=== PATIENT | male | born 1935 | race Caucasian/White ===

== ENCOUNTER 2016-05-19 18:45 | Inpatient (IN) ==
[2016-05-19] MEDS ORDERED: SODIUM CHLORIDE 1,000 ML IV STA (18:56)
[2016-05-19 19:34] LABS: BASOPHILS # (AUTO) 0.1 K/uL (0-0.2); BASOPHILS % (AUTO) 1.2 % (0.0-3.0); EOSINOPHILS # (AUTO) 0.6 K/ul (0.0-0.7); EOSINOPHILS % (AUTO) 6.1 % (0.0-7.0); HEMATOCRIT 35.3 % (42.0-52.0); HEMOGLOBIN 10.8 g/dl (14.0-18.0); IMMATURE GRANULOCYTE % (AUTO) 0.4 % (0.0-5.0); LYMPHOCYTES # (AUTO) 2.1 K/uL (0.60-3.4); LYMPHOCYTES % (AUTO) 20.8 (10.0-50.0); MEAN CORPUSCULAR HGB CONC 30.6 (31.8-35.4); MEAN CORPUSCULAR VOLUME 85.1 fl (80.0-94.0); MONOCYTES % (AUTO) 9.3 (0-10); NEUTROPHILS # (AUTO) 6.4 K/ul (2.0-6.9); NEUTROPHILS % (AUTO) 62.2; PLATELET COUNT 238 10^3/uL (140-440); RED BLOOD COUNT 4.15 10^6/ul (4.70-6.10)
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
[2016-05-19 19:49] LABS: ABG BASE EXCESS 5 (-2.0-2.0); ABG HCO3 28.3 (22.0-26.0); ABG PCO2 36.9 mmHg (35-45); ABG PH 7.493 (7.35-7.45); ABG TCO2 29 (22.0-28.0)
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
[2016-05-19 20:10] LABS: ALBUMIN 3.5 g/dL (3.4-5.0); ALBUMIN/GLOBULIN RATIO 1.06; ANION GAP 11.4; BILIRUBIN,TOTAL 0.52 mg/dL (0.00-1.20); BUN/CREATININE RATIO 14.4; CALCIUM 9.4 mg/dL (8.2-10.2); CREATININE 1.25 mg/dL (0.60-1.10); POTASSIUM 4.4 mmol/L (3.5-5.1); TOTAL PROTEIN 6.8 g/dL (5.8-8.1)
[2016-05-19 20:11] LABS: CREATINE KINASE MB 3.6 ng/ml (0.0-3.6)
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
[2016-05-19] MEDS ORDERED: SODIUM CHLORIDE 1,000 ML IV SCH (20:30)
[2016-05-19 20:40] LABS: BILIRUBIN,URINE Negative (NEGATIVE); KETONES,URINE Negative (NEGATIVE); LEUKOCYTE ESTERASE ,URINE 2+ (NEGATIVE); NITRITE,URINE Negative (NEGATIVE); PROTEIN,URINE Negative (NEGATIVE); URINE, BLOOD 1+ (NEGATIVE)
[2016-05-19 20:42] LABS: ADD URINE MICROSCOPIC YES; BACTERIA,URINE 1+ (NOT PRESENT)
[2016-05-19] MEDS: PERCOCET 5-325 PO PRN (21:23)
[2016-05-19 21:59] VITALS: BMI 24.8
[2016-05-19] MEDS ORDERED: DESYREL PO PRN (22:31)
[2016-05-19] MEDS ORDERED: NON-FORMULARY MEDICATION (Simvastatin [Zocor] 20 MG) PO SCH ×22 (22:45)
[2016-05-19] MEDS ORDERED: ZOCOR ONE (22:49)
[2016-05-19] MEDS: NEURONTIN PO SCH (22:50)
[2016-05-19] MEDS: XOPENEX 0.63 MG NEB SCH (23:45)
[2016-05-20] MEDS: XOPENEX 0.63 MG NEB SCH ×2 (05:10→14:34)
[2016-05-20 05:28] LABS: BASOPHILS # (AUTO) 0.1 K/uL (0-0.2); BASOPHILS % (AUTO) 1.1 % (0.0-3.0); EOSINOPHILS # (AUTO) 0.6 K/ul (0.0-0.7); EOSINOPHILS % (AUTO) 7.1 % (0.0-7.0); HEMATOCRIT 31.4 % (42.0-52.0); HEMOGLOBIN 9.8 g/dl (14.0-18.0); IMMATURE GRANULOCYTE % (AUTO) 0.4 % (0.0-5.0); LYMPHOCYTES # (AUTO) 2.1 K/uL (0.60-3.4); LYMPHOCYTES % (AUTO) 26.1 (10.0-50.0); MEAN CORPUSCULAR HEMOGLOBIN 26.4 pg (27.0-31.0); MEAN CORPUSCULAR HGB CONC 31.2 (31.8-35.4); MEAN CORPUSCULAR VOLUME 84.6 fl (80.0-94.0); MONOCYTES # (AUTO) 0.7 K/uL (0.4-2.0); MONOCYTES % (AUTO) 8.9 (0-10); NEUTROPHILS # (AUTO) 4.5 K/ul (2.0-6.9); NEUTROPHILS % (AUTO) 56.4; PLATELET COUNT 219 10^3/uL (140-440); RED BLOOD COUNT 3.71 10^6/ul (4.70-6.10); WHITE BLOOD COUNT 7.98 K/ul (4.2-10.2)
[2016-05-20 05:47] LABS: ALBUMIN 3.1 g/dL (3.4-5.0); ALBUMIN/GLOBULIN RATIO 1.07; ANION GAP 11.2; BILIRUBIN,TOTAL 0.54 mg/dL (0.00-1.20); BUN/CREATININE RATIO 15.95; CALCIUM 9.2 mg/dL (8.2-10.2); CREATININE 0.94 mg/dL (0.60-1.10); POTASSIUM 4.2 mmol/L (3.5-5.1)
[2016-05-20] MEDS: MUCINEX PO SCH ×2 (08:39→16:29)
[2016-05-20] MEDS: NEURONTIN PO SCH ×2 (08:40→16:30)
[2016-05-20] MEDS: PERCOCET 5-325 PO PRN (08:41)
[2016-05-20] MEDS ORDERED: FOLIC ACID SUBCUT SCH (09:00)
[2016-05-20] MEDS ORDERED: NON-FORMULARY MEDICATION (Omega-3 Fatty Acids/Fish Oil [Fish Oil 1,000 Mg Softgel] 1,000 M PO SCH ×22 (09:00)
[2016-05-20] MEDS ORDERED: OMEGA-3 FISH OIL PO SCH (09:00)
[2016-05-20] MEDS ORDERED: NON-FORMULARY MEDICATION (Hydroxychloroquine Sulfate 200 MG) PO SCH (09:00)
[2016-05-20] MEDS ORDERED: MULTIVITAMIN PO SCH (09:00)
[2016-05-20] MEDS ORDERED: LOVENOX SUBCUT SCH (09:00)
[2016-05-20] MEDS ORDERED: FLOMAX PO SCH (09:00)
[2016-05-20] MEDS ORDERED: SPIRIVA IH SCH (09:00)
[2016-05-20] MEDS ORDERED: PREDNISONE PO SCH (09:00)
[2016-05-20] MEDS ORDERED: PLAQUENIL PO SCH (09:00)
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
[2016-05-20] MEDS: NORCO 10-325 PO SCH ×3 (12:00→16:31)
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
[2016-05-20 15:01] VITALS: BP 106/60; TEMP 97
[2016-05-20] MEDS ORDERED: ZOCOR PO SCH (21:00)
--- NOTE | 2016-05-24 08:39 | PN ---
DATE OF SERVICE: 05/19/16 SUBJECTIVE: The patient was brought by the family to the emergency room as patient was recently at the [facility] after the fall and had a rib fracture. He went home but was not going fine, still weak and tired complaining about the chest pain and pain when he breathes so the family was worried and brought the patient to the emergency room for the evaluation. He was seen by Dr. Collazo. CT chest again showed the fractured ribs. He was given some IV fluids in the emergency room; mildly anemic 10.8, glucose [address] chest found rib fracture on the right first rib and displaced fractured left lateral second rib at that time the patient was admitted to the hospital for the pain medication and for IV fluids management. REVIEW OF SYSTEMS: CONSTITUTIONAL: No fever, no chills. HEENT: Normal. ENDOCRINE: No weight gain, no weight loss. CVS: No angina symptoms. No CHF symptoms. No palpitations. No atypical chest pain for CAD. No shortness of breath. No PND, no orthopnea. RESPIRATORY: No cough, no hemoptysis. GI: No nausea, no vomiting. No abdominal pain. : No hematuria. No polyuria. MUSCULOSKELETAL:. No joint swelling. PSYCHIATRIC: Not anxious. No depression. No suicidal thoughts. No homicidal thoughts. SKIN: Intact. No rash. PHYSICAL EXAMINATION: V/S: Blood pressure 165/68, respiratory rate 29, heart rate 102, temperature 97.3 and saturation was 98% in the emergency room. GENERAL: Mildly distress elderly gentleman. HEENT: Normocephalic, atraumatic. Ears, eyes, nose and throat normal. Mucosa dry. Pallor positive. No icterus. NECK: Supple. No JVD, no carotid bruit. No lymphadenopathy. LUNGS:Decreased and Basilar crackles.. No rales or rhonchi. HEART: S1, S2 normal. No S3. No murmur, gallop or regurgitation. ABDOMEN: Soft, nontender. Bowel sounds active. No rigidity. No rebound or guarding. No CVA tenderness. EXTREMITIES: No clubbing, cyanosis or pedal edema. MUSCULOSKELETAL: No joint swelling. NEUROLOGIC: Awake, alert, oriented times three. No focal deficit. LYMPHATIC: No lymph nodes palpable. SKIN: Intact. ASSESSMENT: 1. Right first rib and left second rib fracture 2. Status post fall with concussion to the head 3. History of peptic ulcer disease 4. Anemia 5. Sleep apnea 6. COPD 7. Osteoarthritis 8. Rheumatoid arthritis 9. Prostate Cancer 10.Anxiety PLAN: 1. Admit patient inpatient 2. Pain medications 3. IV fluids 4. Daily I& O's 5. Hydrocodone 6. Lovenox for the DVT prophylaxis Will follow the patient in daily rounds. TIME SPENT: More than 30 minutes MTDD
--- NOTE | 2016-05-24 09:44 | SSS ---
DATE OF SERVICE: 05/20/16 REASON FOR ADMISSION/HISTORY OF PRESENT ILLNESS: The patient was brought by the family to the emergency room as patient was recently at the [facility] after the fall and had a rib fracture. He went home but was not going fine, still weak and tired complaining about the chest pain and pain when he breathes so the family was worried and brought the patient to the emergency room for the evaluation. He was seen by Dr. Collazo. CT chest again showed the fractured ribs. He was given some IV fluids in the emergency room; mildly anemic 10.8, glucose [address] chest found rib fracture on the right first rib and displaced fractured left lateral second rib at that time the patient was admitted to the hospital for the pain medication and for IV fluids management. REVIEW OF SYSTEMS: CONSTITUTIONAL: No night sweats. No fatigue, malaise, lethargy. No fever or chills. HEENT: Eyes: No visual changes. No eye pain. No eye discharge. ENT: No runny nose. No epistaxis. No sinus pain. No sore throat. No odynophagia. No ear pain. No congestion. RESPIRATORY: No cough, no congestion. No hemoptysis. CARDIOVASCULAR: No angina symptoms. No CHF symptoms. No atypical chest pain for CAD. No palpitations. No shortness of breath. GASTROINTESTINAL: No abdominal pain. No nausea or vomiting. No diarrhea or constipation. No hematemesis. No hematochezia. GENITOURINARY: No urgency. No frequency. No dysuria. No hematuria. No obstructive symptoms. No discharge. No pain. No significant abnormal bleeding. MUSCULOSKELETAL: No musculoskeletal pain. No joint swelling. NEUROLOGICAL: Awake, alert, oriented to time, place and person. No headache. No neck pain. No syncope. No seizures. No dizziness. PSYCHIATRIC: Not anxious. No depression. No suicidal thoughts. No homicidal thoughts. SKIN: No rash. No lesions. No wounds. ENDOCRINE: No unexplained weight loss. No weight gain. HEMATOLOGIC/LYMPHATIC: No anemia. No purpura. No petechiae. No prolonged or excessive bleeding. No palpable lymph nodes. PAST MEDICAL HISTORY: Dyslipidemia Hypertension Osteoporosis Chronic kidney disease Rheumatoid arthritis BHP Anemia PAST SURGICAL HISTORY: COPD Sleep apnea on CPAP Orthopedic surgery Joints straightened- toes pins in place PERSONAL/FAMILY HISTORY/SOCIAL HISTORY: The patient does not smoke or drink. and lives with the . Family history is significant for the prostate cancer. PHYSICAL EXAMINATION: VITAL SIGNS: Temperature 97, pulse 81, blood pressure 16/60, respiratory rate 20 and pulse ox 99% HEENT: Head normocephalic, atraumatic. Bruises on face. Eyes: Extraocular muscles are intact. Pupils are equal, round and reactive to light and accommodation. Ears: No lesions. Nose appeared normal. Throat: No exudate or erythema. NECK: Supple. No JVD, no carotid bruit. No lymphadenopathy or thyromegaly. LUNGS: Clear to auscultation. Percussion note normal. Chest symmetrical. HEART: S1, S2, no S3. No murmurs. No cyanosis or clubbing. No ascites. Pulses: Dorsalis pedis and posterior tibial pulses +1 to +2 both sides. ABDOMEN: Soft. Nontender. Bowel sounds active. No CVA tenderness. No mass felt. Left rib fracture with tenderness. EXTREMITIES: No edema. Full range of motion of all extremities, equal. NEUROLOGIC: No focal deficit. Cranial nerves II through XII are grossly intact. No headache, no double vision or headache. SKIN: Not dry. Intact. Turgor - normal. LYMPHATIC: No palpable lymph nodes/no lymphedema. MUSCULOSKELETAL: Normal joints with no swelling. Muscle tone is normal. Old/present records reviewed Office records reviewed. ALLERGIES: Codeine Methotrexate MEDICATIONS: Trazodone Spiriva Plaquenil Prednisone Zocor Neurontin Fish Oil Fosamax Flomax Lortab Mucinex LABS/EKG'S/X-RAY/ECHO/ABG: WBC 10.20, hgb 10.8 and 9.8, hct 35.3, plt count 238, ABG pH 7.439, pCO 36.9, pO2 66, sodium 140, potassium 4.4, chloride 104, bicarb 29, BUN 18, creatinine 1.25, U/A positive for blood and leukocyte esterase 2+, nitrates negative. PROGRESS NOTES: See EMR. DIAGNOSES: 1. Status post fall with the right first rib fracture left second rib fracture 2. Anemia 3. Rheumatoid arthritis 4. COPD 5. Sleep apnea on CPAP 6. Rheumatic lung disease 7. Osteoarthritis 8. DJD spine 9. Prostate cancer RECOMMENDATIONS/PLAN: 1. Discharge patient home. 2. Continue pain medication 3. Please take breathing treatments 4. Please keep the follow up with the PMD because pneumonia can develop because of the fractured ribs. 5. Calcium and Vitamin D over the counter 6. Fall risk been discussed with the patient. BRIEF HOSPITAL COURSE: The patient was admitted overnight with the pain medications and with the given treatment he was doing good and he don't want to stay in the hospital. Explained about the rib pain and the rib fracture with risk pneumonia and verbalized understanding. He says that his is leaving for [place] and he has to go with her; therefore, he demanded the discharge. As patient and the patient's family is known to us, the patient was discharged home not against medical advise. TIME SPENT: More than 50 minutes. GIOVANY
[2016-05-27] MEDS ORDERED: FOSAMAX PO SCH (09:00)
== END 2016-05-20 15:34 | disposition home or self-care (01) | DRG 184 ==
LOC: ED 18:45 → MEDSURG B 20:26 → UNDOADMIN 20:26
PROVIDERS: ADMIT Emergency Medicine; ATTEND Emergency Medicine
DX: S22.43XA Multiple fractures of ribs, bilateral, initial encounter for closed fracture (principal); J44.1 Chronic obstructive pulmonary disease with (acute) exacerbation; S00.83XA Contusion of other part of head, initial encounter; I10 Essential (primary) hypertension; D64.9 Anemia, unspecified; M06.9 Rheumatoid arthritis, unspecified; F32.9 Major depressive disorder, single episode, unspecified; M81.0 Age-related osteoporosis without current pathological fracture; M47.896 Other spondylosis, lumbar region; N40.0 Benign prostatic hyperplasia without lower urinary tract symptoms; V89.2XXA Person injured in unspecified motor-vehicle accident, traffic, initial encounter; Z79.899 Other long term (current) drug therapy
CPT/HCPCS: 36415; 80053; 81001; 82140; 82550; 82553; 82803; 85025; 87086; 93005; 93010; 94150; 94640; 96360; 99223; 99239; 99284

== ENCOUNTER 2016-08-07 08:47 | Outpatient (CLI) ==
[2016-08-07 09:04] LABS: HEMATOCRIT 34.9 % (42.0-52.0); HEMOGLOBIN 10.9 g/dl (14.0-18.0); MEAN CORPUSCULAR HEMOGLOBIN 28.2 pg (27.0-31.0); MEAN CORPUSCULAR HGB CONC 31.2 (31.8-35.4); MEAN CORPUSCULAR VOLUME 90.2 fl (80.0-94.0); PLATELET COUNT 230 10^3/uL (140-440); RED BLOOD COUNT 3.87 10^6/ul (4.70-6.10); WHITE BLOOD COUNT 8.36 K/ul (4.2-10.2)
[2016-08-07 09:29] LABS: ALBUMIN 3.5 g/dL (3.4-5.0); ALBUMIN/GLOBULIN RATIO 1.06; ANION GAP 10.1; BILIRUBIN,TOTAL 0.23 mg/dL (0.00-1.20); BUN/CREATININE RATIO 29.05; CALCIUM 8.4 mg/dL (8.2-10.2); CREATININE 1.17 mg/dL (0.60-1.10); POTASSIUM 4.1 mmol/L (3.5-5.1); TOTAL PROTEIN 6.8 g/dL (5.8-8.1)
[2016-08-07 09:38] LABS: ERYTHROCYTE SEDIMENTATION RATE 94 mm/hr (0-15); ESR INTERNAL QC INTERNAL QC VALID
== END 2016-08-07 08:48 | disposition home or self-care (01) ==
LOC: LAB 08:47
PROVIDERS: ATTEND Internal Medicine Rheumatology
DX: Z79.899 Other long term (current) drug therapy (principal)
CPT/HCPCS: 36415; 80053; 85027; 85651; 86140